=== PATIENT | female | born 1980 | race Caucasian/White ===

== ENCOUNTER 2016-05-15 23:28 | Emergency (ER) | payer OTHER ==
[2016-05-16 02:08] VITALS: BP 138/74
== END 2016-05-16 02:08 | disposition home or self-care (01) ==
LOC: ED 23:28
DX: L50.9 Urticaria, unspecified (principal)
CPT/HCPCS: J1200; J7512

== ENCOUNTER 2016-06-21 09:55 | Emergency (ER) | payer OTHER ==
[~2016-06-21] VITALS: Ht 154.9 cm; Wt 66.7 kg
[2016-06-21 12:32] VITALS: BP 148/84
== END 2016-06-21 12:32 | disposition home or self-care (01) ==
LOC: ED 09:55
DX: L50.0 Allergic urticaria (principal)
CPT/HCPCS: J0171; J2930